=== PATIENT | male | born 1985 | race Caucasian/White ===

== ENCOUNTER 2018-08-25 22:47 | Emergency (ER) | payer SELFPAY ==
[~2018-08-25] VITALS: Ht 177.8 cm; Wt 124.3 kg
[2018-08-25 23:17] VITALS: Ht 177.8 cm; Wt 124.3 kg
[2018-08-26 01:55] VITALS: BP 160/87
== END 2018-08-26 01:55 | disposition home or self-care (01) ==
LOC: ED 22:47
DX: F07.81 Postconcussional syndrome (principal); H70.90 Unspecified mastoiditis, unspecified ear; W18.30XA Fall on same level, unspecified, initial encounter; Y93.89 Activity, other specified; Y92.89 Other specified places as the place of occurrence of the external cause; Y99.8 Other external cause status
CPT/HCPCS: J2270; Q0162